=== PATIENT | female | born 1970 | race Two or more races ===

== ENCOUNTER 2021-04-16 08:55 | Outpatient (CLI) | payer OTHER | END 2021-04-16 09:00 | disposition home or self-care (01) | LOC: LAB 08:55 | PROVIDERS: ATTEND General Practice | DX: I10 Essential (primary) hypertension (principal); N39.0 Urinary tract infection, site not specified; E78.49 Other hyperlipidemia; E03.8 Other specified hypothyroidism; E55.9 Vitamin D deficiency, unspecified; K92.1 Melena; K21.9 Gastro-esophageal reflux disease without esophagitis ==

== ENCOUNTER 2021-04-22 11:36 | Outpatient (CLI) | payer OTHER | END 2021-04-22 11:41 | disposition home or self-care (01) | LOC: LAB 11:36 | PROVIDERS: ATTEND General Practice | DX: K92.1 Melena (principal) ==

== ENCOUNTER 2021-04-22 12:12 | Outpatient (CLI) | payer OTHER | END 2021-04-22 12:23 | disposition home or self-care (01) | LOC: MAMO-SONO 12:12 | PROVIDERS: ATTEND General Practice | DX: N60.19 Diffuse cystic mastopathy of unspecified breast (principal); I10 Essential (primary) hypertension; N39.0 Urinary tract infection, site not specified; E78.49 Other hyperlipidemia; E03.9 Hypothyroidism, unspecified; E55.9 Vitamin D deficiency, unspecified; K92.1 Melena; K21.9 Gastro-esophageal reflux disease without esophagitis ==

== ENCOUNTER 2021-07-01 08:24 | Outpatient (CLI) | payer OTHER | END 2021-07-01 08:31 | disposition home or self-care (01) | LOC: LAB 08:24 | PROVIDERS: ATTEND Obstetrics & Gynecology | DX: D64.9 Anemia, unspecified (principal); N39.0 Urinary tract infection, site not specified; R79.1 Abnormal coagulation profile; R79.89 Other specified abnormal findings of blood chemistry ==

== ENCOUNTER 2021-12-08 07:46 | Outpatient (CLI) | payer OTHER | END 2021-12-08 07:49 | disposition home or self-care (01) | LOC: SONOGRAMA 07:46 | PROVIDERS: ATTEND Anesthesiology | DX: M75.21 Bicipital tendinitis, right shoulder (principal) ==

== ENCOUNTER 2022-02-19 09:17 | Outpatient (CLI) | payer OTHER | END 2022-02-19 09:18 | disposition home or self-care (01) | LOC: LAB 09:17 | PROVIDERS: ATTEND General Practice | DX: E03.9 Hypothyroidism, unspecified (principal); E78.2 Mixed hyperlipidemia; K21.9 Gastro-esophageal reflux disease without esophagitis; D64.9 Anemia, unspecified; L68.0 Hirsutism ==

== ENCOUNTER 2022-02-19 10:01 | Outpatient (CLI) | payer OTHER | END 2022-02-19 10:03 | disposition home or self-care (01) | LOC: SONOGRAMA 10:01 | PROVIDERS: ATTEND Obstetrics & Gynecology Gynecology | DX: N91.1 Secondary amenorrhea (principal) ==

== ENCOUNTER 2022-04-21 13:02 | Outpatient (CLI) | payer OTHER | END 2022-04-21 13:03 | disposition home or self-care (01) | LOC: NUCLEAR 13:02 | PROVIDERS: ATTEND Obstetrics & Gynecology Gynecology | DX: M81.0 Age-related osteoporosis without current pathological fracture (principal) ==

== ENCOUNTER 2022-05-22 09:07 | Outpatient (CLI) | payer OTHER | END 2022-05-22 09:08 | disposition home or self-care (01) | LOC: LAB 09:07 | PROVIDERS: ATTEND General Practice | DX: J06.9 Acute upper respiratory infection, unspecified (principal); J11.81 Influenza due to unidentified influenza virus with encephalopathy; Z20.822 Contact with and (suspected) exposure to COVID-19 ==

== ENCOUNTER 2022-07-23 09:46 | Outpatient (CLI) | payer OTHER | END 2022-07-23 09:53 | disposition home or self-care (01) | LOC: MAMO-SONO 09:46 | PROVIDERS: ATTEND Obstetrics & Gynecology Gynecology | DX: Z12.31 Encounter for screening mammogram for malignant neoplasm of breast (principal); N64.9 Disorder of breast, unspecified; N64.4 Mastodynia ==

== ENCOUNTER 2022-07-23 11:23 | Outpatient (CLI) | payer OTHER | END 2022-07-23 11:28 | disposition home or self-care (01) | LOC: LAB 11:23 | PROVIDERS: ATTEND Obstetrics & Gynecology Gynecology | DX: N95.1 Menopausal and female climacteric states (principal) ==

== ENCOUNTER 2022-10-15 11:21 | Outpatient (CLI) | payer OTHER | END 2022-10-15 11:32 | disposition home or self-care (01) | LOC: RAD 11:21 | PROVIDERS: ATTEND General Practice | DX: M79.672 Pain in left foot (principal) ==

== ENCOUNTER 2023-01-14 09:39 | Outpatient (CLI) | payer OTHER | END 2023-01-14 09:41 | disposition home or self-care (01) | LOC: SONOGRAMA 09:39 | PROVIDERS: ATTEND Internal Medicine Gastroenterology | DX: K76.0 Fatty (change of) liver, not elsewhere classified (principal) ==

== ENCOUNTER → 2023-05-12 10:27 | Outpatient (CLI) | payer OTHER ==
[2023-05-12 11:58] LABS: HEMATOCRIT 40.1 % (36.0-45.00); HEMOGLOBIN 13.4 g/dL (12.0-15.00); MEAN CELL VOLUME 90.2 fL (80.00-100.00); MEAN CORPUSCULAR HGB CONC 33.3 g/dl (32.0-36.0); PLATELET COUNT 217 K/uL (150-450); RED BLOOD COUNT 4.45 M/uL (4.00-6.00); RED CELL DISTRIBUTION WIDTH 14.1 % (11.5-14.5)
[2023-05-12 12:31] LABS: ALBUMIN 3.4 gm/dL (3.4-5.0); BILIRUBIN TOTAL 0.36 mg/dL (0.3-1.2); CALCIUM 8.9 mg/dL (8.5-10.1); CHOL HDL RATIO 3.1 (0-5.0); CREATININE SERUM 0.75 mg/dL (0.55-1.02); FREE TRIODOTIRONINE 2.4 pg/ml (2.18-3.98); GFR 80.23; GLOBULINA 3.3 G/DL (2.4-3.5); POTASSIUM 4.03 mEq/L (3.5-5.1); T4 FREE 0.75 NG/ML (0.76-1.46); TOTAL PROTEIN 6.7 gm/dL (6.4-8.2); TSH 0.674 uIU/mL (0.358-3.74)
== END | disposition home or self-care (01) ==
LOC: LAB 10:27
PROVIDERS: ATTEND General Practice
DX: E55.9 Vitamin D deficiency, unspecified (principal); D50.8 Other iron deficiency anemias; E03.9 Hypothyroidism, unspecified; E56.9 Vitamin deficiency, unspecified; E63.9 Nutritional deficiency, unspecified; E11.9 Type 2 diabetes mellitus without complications; R53.81 Other malaise

== ENCOUNTER 2023-06-11 07:09 | Outpatient (CLI) | payer OTHER | END 2023-06-11 07:12 | disposition home or self-care (01) | LOC: LAB 07:09 | PROVIDERS: ATTEND General Practice | DX: E11.9 Type 2 diabetes mellitus without complications (principal) ==

== ENCOUNTER 2024-02-10 00:47 | Emergency (ER) | payer OTHER ==
[~2024-02-10] VITALS: Ht 154.9 cm; Wt 82.6 kg
[2024-02-10] MEDS ORDERED: METFORMIN HCL500 M1 PO (01:10)
[2024-02-10] MEDS ORDERED: ATORVASTATIN CA20 MG PO (01:10)
[2024-02-10] MEDS ORDERED: TRAMADOL HCL50 MG PO (01:10)
[2024-02-10] MEDS ORDERED: LEVOTHYROXINE25 MC1 PO (01:10)
[2024-02-10] MEDS ORDERED: GABAPENTIN800 M1 PO (01:10)
[2024-02-10] MEDS ORDERED: DEXAMETHASONE SODIUM PHOSPHATE 4 MG/ML VIAL IM STA (02:57)
[2024-02-10] MEDS ORDERED: PROMETHAZINE HCL 25 MG/ML AMPUL IM STA (02:58)
[2024-02-10] MEDS ORDERED: MEPERIDINE HCL/PF 25 MG/ML VIAL IM STA (02:58)
== END 2024-02-10 03:11 | disposition home or self-care (01) ==
LOC: ER 00:49
DX: M25.511 Pain in right shoulder (principal); Z88.6 Allergy status to analgesic agent; Z88.8 Allergy status to other drugs, medicaments and biological substances; E11.9 Type 2 diabetes mellitus without complications; Z79.84 Long term (current) use of oral hypoglycemic drugs

== ENCOUNTER 2024-02-13 14:54 | Outpatient (CLI) | payer OTHER ==
[~2024-02-13 14:54] MED LIST: ATORVASTATIN CA20 MG PO; GABAPENTIN800 M1 PO; LEVOTHYROXINE25 MC1 PO; METFORMIN HCL500 M1 PO; TRAMADOL HCL50 MG PO
== END 2024-02-13 15:01 | disposition home or self-care (01) ==
LOC: MRI 14:54
PROVIDERS: ATTEND General Practice
DX: M75.31 Calcific tendinitis of right shoulder (principal)
CPT/HCPCS: 73221

== ENCOUNTER 2024-06-28 08:51 | Outpatient (CLI) | payer OTHER | END 2024-06-28 08:54 | disposition home or self-care (01) | LOC: RAD 08:51 | PROVIDERS: ATTEND Physical Medicine & Rehabilitation | DX: M65.812 Other synovitis and tenosynovitis, left shoulder (principal); M24.512 Contracture, left shoulder; N64.4 Mastodynia; N64.9 Disorder of breast, unspecified; Z12.31 Encounter for screening mammogram for malignant neoplasm of breast ==

== ENCOUNTER → 2024-06-29 07:06 | Outpatient (CLI) | payer OTHER ==
[2024-06-29 07:54] LABS: PH,URINE 5.5 (5.0-8.0); URINE APPEARANCE Clear; URINE BILIRRUBIN Negative (NEGATIVE); URINE BLOOD Negative; URINE COLOR Yellow; URINE GLUCOSE Negative (NEGATIVE); URINE KETONE Negative (NEGATIVE); URINE LEUKOCYTE Negative; URINE NITRATE Negative; URINE PROTEIN Negative (NEGATIVE)
[2024-06-29 07:57] LABS: URINE BACTERIA 7.3 uL (0.0-1933); URINE EPITHELIAL CELLS 6.6 uL (0.0-38.8); URINE RBC 10.3 uL (0.0-20.8); URINE WBC 10.1 uL (0.0-23.2)
[2024-06-29 08:10] LABS: HEMOGLOBIN 12.6 g/dL (12.0-15.00); MEAN CORPUSCULAR HEMOGLOBIN 30.2 pg (27.00-32.0); MEAN CORPUSCULAR HGB CONC 32.5 g/dl (32.0-36.0); PLATELET COUNT 203 K/uL (150-450); RED BLOOD COUNT 4.19 M/uL (4.00-6.00); RED CELL DISTRIBUTION WIDTH 13.6 % (11.5-14.5)
[2024-06-29 09:39] LABS: ALBUMIN 3.5 gm/dL (3.4-5.0); BILIRUBIN TOTAL 0.4 mg/dL (0.3-1.2); CALCIUM 9.2 mg/dL (8.5-10.1); CHOL HDL RATIO 2.3 (0-5.0); CREATININE SERUM 0.76 mg/dL (0.55-1.02); FREE TRIODOTIRONINE 2.66 pg/ml (2.18-3.98); GFR 78.72; POTASSIUM 3.92 mEq/L (3.5-5.1); T4 FREE 0.92 NG/ML (0.76-1.46); TOTAL PROTEIN 6.5 gm/dL (6.4-8.2); TSH 1.2 uIU/mL (0.358-3.74)
== END | disposition home or self-care (01) ==
LOC: LAB 07:06
PROVIDERS: ATTEND General Practice
DX: N39.0 Urinary tract infection, site not specified (principal); E55.9 Vitamin D deficiency, unspecified; E78.00 Pure hypercholesterolemia, unspecified; D50.9 Iron deficiency anemia, unspecified; D50.8 Other iron deficiency anemias; E08.69 Diabetes mellitus due to underlying condition with other specified complication; E03.9 Hypothyroidism, unspecified; E56.9 Vitamin deficiency, unspecified; E63.9 Nutritional deficiency, unspecified; E11.9 Type 2 diabetes mellitus without complications; R53.81 Other malaise

== ENCOUNTER 2024-10-03 11:04 | Outpatient (CLI) | payer OTHER | END 2024-10-03 11:07 | disposition home or self-care (01) | LOC: RAD 11:04 | PROVIDERS: ATTEND General Practice | DX: M25.521 Pain in right elbow (principal); Z12.11 Encounter for screening for malignant neoplasm of colon ==

== ENCOUNTER 2024-11-12 08:58 | Outpatient (CLI) | payer OTHER | END 2024-11-12 09:05 | disposition home or self-care (01) | LOC: MRI 08:58 | PROVIDERS: ATTEND Anesthesiology | DX: M42.12 Adult osteochondrosis of spine, cervical region (principal) | CPT/HCPCS: 72141 ==

== ENCOUNTER → 2024-12-26 09:25 | Outpatient (CLI) | payer OTHER | END | disposition home or self-care (01) | LOC: NUCLEAR 09:25 | DX: M81.0 Age-related osteoporosis without current pathological fracture (principal) ==

== ENCOUNTER 2025-01-16 09:37 | Outpatient (CLI) | payer OTHER ==
[2025-01-16 10:08] LABS: BASO % 0.4 % (0.1-1.2); EOS # 0.21 (0.04-0.54); EOS % 3.1 % (0.7-7.0); LYMPH # 2.54 (1.18-3.74); LYMPH % 37.9 % (19.3-53.1); MEAN PLATELET VOLUME 12.10 fl (9.4-12.4); MONO # 0.41 (0.24-0.82); MONO % 6.1 % (4.7-12.5); NEUT # 3.50 (1.56-6.13); NEUT % 52.4 % (34.0-71.1); RED CELL DISTRIBUTION WIDTH 12.5 % (11.6-14.4)
[2025-01-16 10:59] LABS: ALT/SGPT 30.0 U/L (12-78); AST/SGOT 18.0 U/L (15-37); BILIRUBIN TOTAL 0.41 mg/dL (0.3-1.2); BUN CREA RATIO 20.0 (7.0-25.0); CHOL HDL RATIO 3.0 (0-5.0); CREATININE SERUM 0.66 mg/dL (0.55-1.02); GFR 92.64; GLOBULINA 3.3 G/DL (2.4-3.5); GLUCOSE FASTING 97.0 mg/dL (65-100); HDL 63.0 mg/dl (40-60); LDL 113.0 mg/dl (0-130); OSMOLALITY SERUM 285.0 MOSM/KG (275-295); T4 FREE 0.77 NG/ML (0.76-1.46); TSH 1.16 uIU/mL (0.358-3.74); VLDL 15.0 (0-39)
== END 2025-01-16 09:41 | disposition home or self-care (01) ==
LOC: LAB 09:37
PROVIDERS: ATTEND Student in an Organized Health Care Education/Training Program
DX: E11.65 Type 2 diabetes mellitus with hyperglycemia (principal); E78.2 Mixed hyperlipidemia; I10 Essential (primary) hypertension; E03.8 Other specified hypothyroidism; C73 Malignant neoplasm of thyroid gland; D50.8 Other iron deficiency anemias